=== PATIENT | male | born 1940 | race African-American/Black ===

== ENCOUNTER 2017-02-07 11:26 | Emergency (ER) | payer MEDICARE, OTHER ==
[2017-02-07 11:39] VITALS: TEMP 96.9
[2017-02-07 11:39] LABS: Glucose,Whole Blood 202 mg/dL (75-99)
--- NOTE | 2017-02-07 11:49 | ED ---
General Adult HPI - General Stated complaint: Altered Mental Time Seen by Provider: 02/07/17 11:32 Source: patient, family, EMS, RN notes reviewed, old records reviewed Mode of arrival: EMS - History of Present Illness Initial comments: This is a 68-year-old male the ER for evaluation. This patient presents to ER for evaluation of weakness and dizziness. Patient's getting dialysis today as he is a dialysis patient and had an episode of nonresponsiveness while he was standing up. Patient did not collapse did not pass out just became unresponsive. Family states this does happen from time to time after dialysis. Patient himself is completely alert and oriented at this time with no complaints. - Related Data Home Medications Medication Instructions Recorded Confirmed Metoprolol Tartrate [Metoprolol 50 mg PO DAILY 02/07/17 02/07/17 Tartrate] Saxagliptin HCl [Onglyza] 2.5 mg PO DAILY 02/07/17 02/07/17 amLODIPine BES/OLMESARTAN MED 1 tab PO DAILY 02/07/17 02/07/17 [amLODIPine BES/OLMESARTAN MED 10-40 mg] glipiZIDE [Glipizide] 10 mg PO BID 02/07/17 02/07/17 Allergies Allergy/AdvReac Type Severity Reaction Status Date / Time No Known Allergies Allergy Verified 02/07/17 11:39 Review of Systems ROS Statement: Those systems with pertinent positive or pertinent negative responses have been documented in the HPI. ROS Other: All systems not noted in ROS Statement are negative. Past Medical History Past Medical History: Diabetes Mellitus, Dialysis, Hypertension History of Any Multi-Drug Resistant Organisms: None Reported Past Surgical History: Orthopedic Surgery Additional Past Surgical History / Comment(s): right shoulder surgery Past Psychological History: No Psychological Hx Reported Smoking Status: Never smoker Past Alcohol Use History: None Reported Past Drug Use History: None Reported General Exam General appearance: alert, in no apparent distress Head exam: Present: atraumatic, normocephalic, normal inspection Eye exam: Present: normal appearance, PERRL, EOMI. Absent: scleral icterus, conjunctival injection, periorbital swelling ENT exam: Present: normal exam, mucous membranes moist Neck exam: Present: normal inspection. Absent: tenderness, meningismus, lymphadenopathy Respiratory exam: Present: normal lung sounds bilaterally. Absent: respiratory distress, wheezes, rales, rhonchi, stridor Cardiovascular Exam: Present: regular rate, normal rhythm, normal heart sounds. Absent: systolic murmur, diastolic murmur, rubs, gallop, clicks GI/Abdominal exam: Present: soft, normal bowel sounds. Absent: distended, tenderness, guarding, rebound, rigid Extremities exam: Present: normal inspection, full ROM, normal capillary refill. Absent: tenderness, pedal edema, joint swelling, calf tenderness Back exam: Present: normal inspection Neurological exam: Present: alert, oriented X3, CN II-XII intact Psychiatric exam: Present: normal affect, normal mood Skin exam: Present: warm, dry, intact, normal color. Absent: rash Course Vital Signs 02/07/17 02/07/17 02/07/17 11:28 11:46 12:12 Temperature 96.9 F L Pulse Rate 63 67 66 Respiratory 20 18 Rate Blood Pressure 224/91 223/94 236/96 O2 Sat by Pulse 100 98 Oximetry 02/07/17 02/07/17 02/07/17 12:34 12:46 13:54 Temperature 96.9 F L Pulse Rate 67 68 68 Respiratory 18 18 Rate Blood Pressure 220/91 209/93 197/87 O2 Sat by Pulse 98 99 Oximetry - Reevaluation(s) Reevaluation #1: 02/07/17 14:28 Patient remains alert and responsive, baseline EKG Findings - EKG Comments: EKG Findings:: EKG shows no signs or masses 67, VA 200, QRS 94, QTc 460 Medical Decision Making - Medical Decision Making 68 meowed ER for evaluation of postdialysis disequilibrium, patient has no medical issue, patient can be discharged home - Lab Data Result diagrams: 02/07/17 11:40 02/07/17 11:40 Lab Results 02/07/17 02/07/17 02/07/17 Range/Units 11:29 11:40 11:40 WBC 14.0 H (3.8-10.6) k/uL RBC 3.71 L (4.30-5.90) m/uL Hgb 11.2 L (13.0-17.5) gm/dL Hct 34.4 L (39.0-53.0) % MCV 92.9 (80.0-100.0) fL MCH 30.2 (25.0-35.0) pg MCHC 32.6 (31.0-37.0) g/dL RDW 16.4 H (11.5-15.5) % Plt Count 355 (150-450) k/uL Neutrophils % 88 % Lymphocytes % 6 % Monocytes % 4 % Eosinophils % 1 % Basophils % 0 % Neutrophils # 12.3 H (1.3-7.7) k/uL Lymphocytes # 0.8 L (1.0-4.8) k/uL Monocytes # 0.6 (0-1.0) k/uL Eosinophils # 0.1 (0-0.7) k/uL Basophils # 0.1 (0-0.2) k/uL Anisocytosis Slight Sodium (137-145) mmol/L Potassium (3.5-5.1) mmol/L Chloride (98-107) mmol/L Carbon Dioxide (22-30) mmol/L Anion Gap mmol/L BUN (9-20) mg/dL Creatinine (0.66-1.25) mg/dL Est GFR (MDRD) Af Amer (>60 ml/min/1.73 sqM) Est GFR (MDRD) Non-Af (>60 ml/min/1.73 sqM) Glucose (74-99) mg/dL POC Glucose (mg/dL) 202 H (75-99) mg/dL POC Glu Heel Scourer ID Lakhwinder, Tonya Calcium (8.4-10.2) mg/dL Phosphorus (2.5-4.5) mg/dL Magnesium (1.6-2.3) mg/dL Total Bilirubin (0.2-1.3) mg/dL AST (17-59) U/L ALT (21-72) U/L Alkaline Phosphatase (38-126) U/L Total Creatine Kinase 92 (55-170) U/L CK-MB (CK-2) 1.7 (0.0-2.4) ng/mL CK-MB (CK-2) Rel Index 1.8 Troponin I 0.015 (0.000-0.034) ng/mL Total Protein (6.3-8.2) g/dL Albumin (3.5-5.0) g/dL 02/07/17 Range/Units 11:40 WBC (3.8-10.6) k/uL RBC (4.30-5.90) m/uL Hgb (13.0-17.5) gm/dL Hct (39.0-53.0) % MCV (80.0-100.0) fL MCH (25.0-35.0) pg MCHC (31.0-37.0) g/dL RDW (11.5-15.5) % Plt Count (150-450) k/uL Neutrophils % % Lymphocytes % % Monocytes % % Eosinophils % % Basophils % % Neutrophils # (1.3-7.7) k/uL Lymphocytes # (1.0-4.8) k/uL Monocytes # (0-1.0) k/uL Eosinophils # (0-0.7) k/uL Basophils # (0-0.2) k/uL Anisocytosis Sodium 139 (137-145) mmol/L Potassium 4.1 (3.5-5.1) mmol/L Chloride 96 L (98-107) mmol/L Carbon Dioxide 30 (22-30) mmol/L Anion Gap 13 mmol/L BUN 17 (9-20) mg/dL Creatinine 3.68 H (0.66-1.25) mg/dL Est GFR (MDRD) Af Amer 19 (>60 ml/min/1.73 sqM) Est GFR (MDRD) Non-Af 16 (>60 ml/min/1.73 sqM) Glucose 201 H (74-99) mg/dL POC Glucose (mg/dL) (75-99) mg/dL POC Glu Heel Scourer ID Calcium 9.5 (8.4-10.2) mg/dL Phosphorus 3.8 (2.5-4.5) mg/dL Magnesium 1.8 (1.6-2.3) mg/dL Total Bilirubin 1.2 (0.2-1.3) mg/dL AST 24 (17-59) U/L ALT 34 (21-72) U/L Alkaline Phosphatase 87 (38-126) U/L Total Creatine Kinase (55-170) U/L CK-MB (CK-2) (0.0-2.4) ng/mL CK-MB (CK-2) Rel Index Troponin I (0.000-0.034) ng/mL Total Protein 7.7 (6.3-8.2) g/dL Albumin 4.2 (3.5-5.0) g/dL Disposition Clinical Impression: Dizziness, Near syncope Disposition: HOME SELF-CARE Condition: Good Instructions: Near Syncope (ED) Referrals: Norberto Zimmer MD [Primary Care Provider] - 1-2 days
[2017-02-07] MEDS ORDERED: LABETALOL SYRINGE 5 MG/ML IVP STA (12:00)
[2017-02-07 12:17] LABS: Anisocytosis Slight; Basophils # (A) 0.1 k/uL (0-0.2); Basophils % (A) 0 %; CH 30.2; CHCM 32.6; Eosinophils # (A) 0.1 k/uL (0-0.7); Eosinophils % (A) 1 %; HCT 34.4 % (39.0-53.0); HDW 2.44; HGB 11.2 gm/dL (13.0-17.5); Luc # (Auto) 0.21; Luc % (Auto) 2; Lymphocytes # (A) 0.8 k/uL (1.0-4.8); Lymphocytes % (A) 6 %; MCH 30.2 pg (25.0-35.0); MCHC 32.6 g/dL (31.0-37.0); MCV 92.9 fL (80.0-100.0); Mean Platelet Volume 8.2; Monocytes # (A) 0.6 k/uL (0-1.0); Monocytes % (A) 4 %; Neutrophils # (A) 12.3 k/uL (1.3-7.7); Neutrophils % (A) 88 %; RBC 3.71 m/uL (4.30-5.90); RDW 16.4 % (11.5-15.5); WBC (Perox) 14.39
[2017-02-07 12:18] VITALS: RESP 18
[2017-02-07 12:28] LABS: Calcium 9.5 mg/dL (8.4-10.2); Magnesium 1.8 mg/dL (1.6-2.3); Phosphorous 3.8 mg/dL (2.5-4.5); Potassium 4.1 mmol/L (3.5-5.1); Total Bilirubin 1.2 mg/dL (0.2-1.3); Total Protein 7.7 g/dL (6.3-8.2)
[2017-02-07 12:52] LABS: Creatine Kinase MB 1.7 ng/mL (0.0-2.4); Troponin I 0.015 ng/mL (0.000-0.034)
[2017-02-07] MEDS ORDERED: hydrALAZINE HCL 20 MG/ML 1 ML VIAL IVP STA (14:35)
[2017-02-07 15:03] VITALS: BP 197/70; PULSE 70
== END 2017-02-07 15:03 | disposition home or self-care (01) ==
LOC: EC 11:26
DX: R55 Syncope and collapse (principal); R42 Dizziness and giddiness; Z99.2 Dependence on renal dialysis; Z79.899 Other long term (current) drug therapy; I10 Essential (primary) hypertension; E11.9 Type 2 diabetes mellitus without complications; Z79.84 Long term (current) use of oral hypoglycemic drugs
CPT/HCPCS: 36415; 93005; 80053; 82550; 82553; 83735; 84100; 84484; 85025; 96374; 96375; 99285; J0360